=== PATIENT | male | born 1955 | race Caucasian/White ===

== ENCOUNTER 2019-12-13 17:33 | Emergency (ER) | payer OTHER ==
[~2019-12-13] VITALS: Ht 172.7 cm; Wt 85.1 kg
[2019-12-13] MEDS ORDERED: IBUPROFEN 100 MG/5 ML ORAL.SUSP. ONE (18:19)
[2019-12-13] MEDS ORDERED: LIDOCAINE 2% VISCOUS 15 ML SOLUTION. ONE (18:19)
[2019-12-13] MEDS ORDERED: BENZOCAINE ONE 20% MUCOSAL SPRAY. ×3 (18:32→18:33)
[2019-12-13] MEDS ORDERED: IOHEXOL 300 MG/ML 75 ML VIAL. IV ONE (19:15)
[2019-12-13] MEDS ORDERED: CONTRAST GIVEN MC PRN (19:15)
--- NOTE | 2019-12-13 21:06 | RAD ---
Exam: CT soft tissue neck with contrast INDICATION: Foreign body sensation TECHNIQUE: Sequential axial images through the neck obtained following the administration of 70 mL of Omni 300 IV contrast. Sagittal and coronal reformatted images were reconstructed from the axial data and reviewed. Comparisons: None FINDINGS: Visualized intracranial structures are unremarkable. Paranasal sinuses and mastoid air cells are well-pneumatized. Visualized cervical vasculature is patent. Nasopharynx, oropharynx, hypopharynx and larynx are patent. Thyroid and salivary glands are unremarkable. No enlarged cervical lymph nodes are identified. Visualized lung apices are clear. No suspicious osseous lesions or acute fractures. IMPRESSION: Pharynx and larynx are patent without evidence of mass or fluid collection. No foreign body identified. Exposure: One or more of the following in the visualized dose reduction techniques were utilized for this examination: 1. Automated exposure control 2. Adjustment of the MA and/or KV according to patient size 3. Use of iterative of reconstructive technique Electronically signed by: Lynnette Carrasco MD (12/13/2019 9:03 PM) [id number]
--- NOTE | 2019-12-13 21:20 | PHYS DOC ---
Past History Past Medical History: Glaucoma, Hypertension Past Surgical History: No Surgical History Alcohol Use: None Adult General Chief Complaint Chief Complaint: FOREIGN BODY.. " I was eating an apple and something got stuck in my throat or cut my throat.. it just does not want to get better.. here right next to my [place] apple area... " HPI HPI Patient is a 64 year old male who presents with severe throat pain after eating an apple. Pt. reports pain is so bad he can't swallow. Pt. denies previous history of dysphagia. Patient normally healthy. Follows at [facility]. Not on anticoagulants. Patient currently able to swallow his saliva and liquids, but states he has pain in doing it. No recent overseas travel. No specific con tacts. No history immunosuppression. Patient has no change in speech. Review of Systems Review of Systems Constitutional: Denies fever or chills [] Eyes: Denies change in visual acuity, redness, or eye pain [] HENT: Denies nasal congestion. Complaints of sore throat and dysphagia Respiratory: Denies cough or shortness of breath [] Cardiovascular: No additional information not addressed in HPI [] GI: Denies abdominal pain, nausea, vomiting, bloody stools or diarrhea [] : Denies dysuria or hematuria [] Musculoskeletal: Denies back pain or joint pain [] Integument: Denies rash or skin lesions [] Neurologic: Denies headache, focal weakness or sensory changes [] Endocrine: Denies polyuria or polydipsia [] All other systems were reviewed and found to be within normal limits, except as documented in this note. Family History Family History Noncontributory Current Medications Current Medications Current Medications Medications (Trade) Dose Ordered Sig/Barbi Start Time Stop Time Status Last Admin Dose Admin Benzocaine (Hurricaine One) 1 spray STK-MED ONCE 12/13/19 18:33 12/13/19 18:33 DC Ibuprofen (Motrin) 100 mg STK-MED ONCE 12/13/19 18:19 12/13/19 18:19 DC Info (Do NOT chart on this entry -- for MONITORING) 1 each PRN DAILY PRN 12/13/19 19:15 2 19:14 Iohexol (Omnipaque 300 Mg/ml) 70 ml 1X ONCE 12/13/19 19:15 12/13/19 19:16 DC 12/13/19 20:36 70 ML Lidocaine HCl (Viscous Lidocaine) 15 ml STK-MED ONCE 12/13/19 18:19 12/13/19 18:19 DC Allergies Allergies Allergies Coded Allergies Type Severity Reaction Last Updated Verified No Known Drug Allergies 12/13/19 No Physical Exam Physical Exam Constitutional: [id number] acute distress, non-toxic appearance. [] HENT: Normocephalic, atraumatic, bilateral external ears normal, oropharynx moist, no oral exudates, nose normal. [] Eyes: PERRLA, EOMI, conjunctiva normal, no discharge. [] Neck: Normal range of motion, has right sided Nawaf's apple or voice box tenderness, supple, no stridor. [] Complains of pain upon swallowing. Did direct visualization of retropharyngeal with glides scope. The cords appeared be functioning well. There was some erythema in posterior pharynx right side but no obvious foreign body. Cardiovascular:Heart rate regular rhythm, no murmur [] Lungs & Thorax: Bilateral breath sounds clear to auscultation [] Abdomen: Bowel sounds normal, soft, no tenderness, no masses, no pulsatile masses. [] Skin: Warm, dry, no erythema, no rash. [] Back: No tenderness, no CVA tenderness. [] Extremities: No tenderness, no cyanosis, no clubbing, ROM intact, no edema. [] Neurologic: Alert and oriented X 3, normal motor function, normal sensory function, no focal deficits noted. [] Psychologic: Affect anxious, judgement normal, mood normal. [] Current Patient Data Vital Signs Vital Signs Date Time Temp Pulse Resp B/P (MAP) Pulse Ox O2 Delivery O2 Flow Rate FiO2 12/13/19 17:51 109 20 161/98 (119) 100 EKG EKG [] Radiology/Procedures Radiology/Procedures [][address] [address] IMAGING REPORT Signed PATIENT: AWILDA GUIDRY ACCOUNT: [id number] : 1955 LOCATION: ER AGE: 64 SEX: M EXAM STATUS: REG ER ORD. PHYSICIAN: JUNIOR BUNCH MD REASON: foreign body sensation just below cords, OMNI 300, 70ml PROCEDURE: CT SOFT TISSUE NECK W/CONTRAST Exam: CT soft tissue neck with contrast INDICATION: Foreign body sensation TECHNIQUE: Sequential axial images through the neck obtained following the administration of 70 mL of Omni 300 IV contrast. Sagittal and coronal reformatted images were reconstructed from the axial data and reviewed. Comparisons: None FINDINGS: Visualized intracranial structures are unremarkable. Paranasal sinuses and mastoid air cells are well-pneumatized. Visualized cervical vasculature is patent. Nasopharynx, oropharynx, hypopharynx and larynx are patent. Thyroid and salivary glands are unremarkable. No enlarged cervical lymph nodes are identified. Visualized lung apices are clear. No suspicious osseous lesions or acute fractures. IMPRESSION: Pharynx and larynx are patent without evidence of mass or fluid collection. No foreign body identified. Exposure: One or more of the following in the visualized dose reduction techniques were utilized for this examination: 1. Automated exposure control 2. Adjustment of the MA and/or KV according to patient size 3. Use of iterative of reconstructive technique Electronically signed by: Lynnette Carrasco MD (12/13/2019 9:03 PM) [id number] Course & Med Decision Making Course & Med Decision Making Pertinent Labs and Imaging studies reviewed. (See chart for details) Patient maintained clear fluid diet was soft diet. Follow-up primary care. May take Tylenol for discomfort. Return if any concerns. Impression: 1. Throat Pain 2. Foreign body sensation at the level of C5/C6 [] Dragon Disclaimer Dragon Disclaimer This electronic medical record was generated, in whole or in part, using a voice recognition dictation system. Departure Departure: Impression: Primary Impression: Foreign body Disposition: 01 HOME/RESIDENCE PRIOR TO ADM Condition: STABLE Dragon Disclaimer This chart was dictated in whole or in part using Voice Recognition software in a busy, high-work load, and often noisy Emergency Department environment. It may contain unintended and wholly unrecognized errors or omissions. JUNIOR BUNCH MD Dec 13, 2019 21:20
[2019-12-13 21:41] VITALS: BP 157/102
== END 2019-12-13 21:41 | disposition home or self-care (01) ==
LOC: ER 17:33
DX: T17.228A Food in pharynx causing other injury, initial encounter (principal); I10 Essential (primary) hypertension; X58.XXXA Exposure to other specified factors, initial encounter; Y93.89 Activity, other specified; Y92.89 Other specified places as the place of occurrence of the external cause; Y99.8 Other external cause status
CPT/HCPCS: 70491; 99284; Q9967

== ENCOUNTER → 2020-05-23 | Outpatient (CLI) | payer OTHER ==
[~2020-05-23] MED LIST: AMLO-308 PO; ATOR20TA PO; BIMA2.5D EACHEYE; CAND32TA19 PO; FEXO180T81 PO; GARL10002 PO; GREE250C2 PO; HYDR-2145 PO; PSYL0.5215 PO
== END | disposition home or self-care (01) ==
LOC: LAB 12:05
PROVIDERS: ATTEND Registered Nurse
DX: Z01.818 Encounter for other preprocedural examination (principal); Z11.59 Encounter for screening for other viral diseases; Z86.010 Personal history of colon polyps
CPT/HCPCS: 36415; U0003

== ENCOUNTER → 2020-05-26 | Day surgery (SDC) | payer OTHER ==
[~2020-05-26] MED LIST changes: +IPRATRPIUM/ALBUTEROL 0.5/2.5MG 3 ML NEBU. NEB PRN; +IV RINGERS SOLUTION,LACTATED 1,000 ML IV SCH; +MIDAZOLAM HCL PF 2 MG/2 ML VIAL. IV ONE; +ONDANSETRON PF 4 MG/2 ML VIAL. IV PRN; +PROPOFOL 10,000 MCG/ML (20ML) VIAL IV ONE
[2020-05-26 08:37] VITALS: BP 143/99
--- NOTE | 2020-05-27 15:08 | PATHOLOGY ---
[facility] Accession Number: [id number] . 01 Material submitted: . PART A: colon - ASCENDING COLON. Modifiers: ascending PART B: splenic flexure - SPLENIC FLEXURE COLON PART C: colon - DESCENDING COLON. Modifiers: descending . 01 Clinical history: . None provided . 02 Diagnosis: A. Colon biopsies, ascending colon: - Tubular adenoma. . B. Colon biopsies, splenic flexure: - Tubular adenomas (2). . C. Colon biopsy, descending colon: - Tubular adenoma. (JP:[facility] 05/27/2020) [facility] 05/27/2020 1449 [facility] . 02 Comment: There is no high-grade dysplasia or evidence of malignancy. (JPM:[facility] 05/27/2020) . 02 Electronically signed: . Jose Mann MD, Pathologist NPI- [id number] . 01 Gross description: . A. The specimen is received in formalin, labeled "Willem, August, ascending colon" and consists of 2 fragments of pink-resendez tissue measuring 0.3 x 0.3 cm and 0.5 x 0.4 cm which are entirely submitted in A1. . B. The specimen is received in formalin, labeled "Willem, August, splenic flexure" and consists of 4 segments of pink-resendez tissue measuring between 0.2 x 0.2 cm and 1.1 x 0.6 x 0.3 cm. The largest segment is inked and trisected and they are entirely submitted in B1. . C. The specimen is received in formalin, labeled "Willem, August, descending" and consists of a fragment of pink-resendez tissue measuring 0.4 x 0.3 cm which is entirely submitted in C1. (SDY; 05/26/2020) SYU/SYU 05/26/2020 1719 Local . 02 Pathologist provided ICD-10: D12.2, D12.3, D12.4 . 02 CPT . 052115, 602392, [id number] Specimen Comment: A courtesy copy of this report has been sent to [phone], [phone] Specimen Comment: [id number] Specimen Comment: Report sent to / DR CABAN Performed at: 01 [facility] [address] [facility] [address], [place] [id number] MD Antonio King MD Phone: [phone] Performed at: 02 [facility] [address], [place] [id number] MD Jose Mann MD Phone: [phone]
== END | disposition home or self-care (01) ==
LOC: SURG 06:11
PROVIDERS: ATTEND Internal Medicine Gastroenterology
DX: Z12.11 Encounter for screening for malignant neoplasm of colon (principal); D12.2 Benign neoplasm of ascending colon; D12.3 Benign neoplasm of transverse colon; D12.4 Benign neoplasm of descending colon; K57.30 Diverticulosis of large intestine without perforation or abscess without bleeding; Z79.899 Other long term (current) drug therapy
CPT/HCPCS: 45380; 45385; J2704; J7120